=== PATIENT | female | born 1965 | race Caucasian/White ===

== ENCOUNTER 2017-09-26 12:04 | Emergency (ER) | payer OTHER, SELFPAY ==
[~2017-09-26 12:04] MED LIST: ISOVUE-370 76%-LOCM 1 ML ONE
--- NOTE | 2017-09-26 12:51 | RAD ---
AP CHEST: Indication: Chest pain, vomiting. Comparison: None. FINDINGS: Lungs are clear. Cardiomediastinal silhouette is within normal limits. There is post-surgical change involving the lower cervical spine, incompletely evaluated within the field of view. No definite acut e osseous abnormality is evident. IMPRESSION: No focal consolidation. POS: [facility]
[2017-09-26 13:05] LABS: #Basophils 0.1 thou/uL (0.0-0.2); #Eosinphils 0.2 thou/uL (0.0-0.7); #Lymphocytes 2.1 thou/uL (1.20-3.40); #Monocytes 0.2 thou/uL (0.11-0.59); #Neutrophils 1.8 thou/uL (1.40-6.50); %Basophils 1.5 % (0.0-1.0); %Eosinophils 3.6 % (0.0-10.0); %Lymphocytes 49.2 % (21.0-51.0); %Monocytes 5.2 % (0.0-10.0); %Neutrophils 40.6 % (42.0-75.0); Hemoglobin 12.7 g/dL (12.0-16.0); Mean Corpuscular HGB CONC 34.2 g/dL (32.0-36.0); Mean Corpuscular Hemoglobin 32.1 pg (27.0-31.0); Mean Corpuscular Volume 93.8 fl (81.0-99.0); Mean Platelet Volume 6.9 fL (7.4-10.4); Platelet Count 215 thou/uL (130-400); RBC Distribution Width 11.5 % (11.5-14.5); Red Blood Cell (RBC) Count 3.94 mill/uL (4.20-5.40); White Blood Cell (WBC) Count 4.3 thou/uL (4.8-10.8)
[2017-09-26 13:14] LABS: INR-International Normal Ratio 1.1; PTT 30.5 SEC (22.9-36.1); Prothrombin Time 14.2 SEC (12.0-14.7)
[2017-09-26 13:35] LABS: CKMB 0.5 ng/mL (0-6.6); Troponin I Less than 0.010 ng/mL (< 0.028)
[2017-09-26 13:40] LABS: ALT (SGPT) 14 U/L (8-55); AST (SGOT) 17 U/L (5-34); Albumin 4.2 g/dL (3.5-5.0); Alkaline Phosphatase 60 U/L (40-150); Anion Gap 9 mmol/L (10-20); BUN (Urea Nitrogen) 14 mg/dL (7.0-18.7); Bilirubin, Total 0.4 mg/dL (0.2-1.2); CK (CPK) 85 U/L (29-168); Calc. Creatinine Clearance 0 mL/min (70-130); Calcium 9.7 mg/dL (7.8-10.44); Carbon Dioxide 29 mmol/L (22-29); Chloride 106 mmol/L (98-107); Estimated GFR-MDRD 43; Globulin 3.4 g/dL (2.4-3.5); Glucose 94 mg/dL (70-105); Lipase 22 U/L (8-78); Potassium 3.7 mmol/L (3.5-5.1); Protein, Total 7.6 g/dL (6.0-8.3); Sodium 140 mmol/L (136-145)
[2017-09-26] MEDS ORDERED: Morphine 4 MG/ML VIAL ONE (14:46)
[2017-09-26] MEDS ORDERED: Ondansetron HCl/PF 4 MG/2 ML Vial ONE ×2 (14:47→16:19)
--- NOTE | 2017-09-26 16:23 | CT ---
CT ABDOMEN WITH CONTRAST CT PELVIS WITH CONTRAST: DATE: 09/26/2017 TIME: 3:58 p.m. HISTORY: A 52-year-old female with nausea, emesis, epigastric pain, and bilateral groin pain. COMPARISON: None. TECHNIQUE: IV injection of iodinated contrast media: Isovue. Oral contrast media: Not administered. FINDINGS: Lung bases: No consolidation or pleural effusion. Pneumoperitoneum: None. Ascites: None. Kidneys: Normal. Abdominal aorta: Normal. Adrenals: Normal. Pancreas: Normal. Spleen: Normal. Liver: Tiny, 0.8 cm focal, round, hypodense lesion in the right lobe of the liver, near the junction of hepatic segment 7 and 8, too small to characterize. No other abnormality. Common duct: Diffusely mildly dilated on a reservoir basis due to cholecystectomy. Cholecystectomy clips are present at the gallbladder fossa. Large intestine: Full of a moderate to large amount of stool. No signs of acute colonic diverticuli tis. Small intestine: Nondilated. Appendix: Absent. Suture line along the distal tip of the cecum. Urinary bladder. Decompressed. Abscess: None. Sacral stimulator lead enters right sacral neural foramen, with distal tip embedded in the right piri formis muscle. Osseous structures: No destructive osseous lesion identified. No high grade central spinal canal st enosis of the lumbar spine. IMPRESSION: 1. No acute findings. 2. Constipation. 3. Status post appendectomy. 4. Status post cholecystectomy. 5. Right sacral stimulator. 6. Tiny hypodense lesion in the right lobe of the liver, too small to characterize. AUTUMN Smith POS: [facility]
[2017-09-26 16:41] LABS: Bilirubin Negative (Negative); Blood, Urine Moderate (Negative); Clarity CLOUDY (Clear); Glucose, Urine (Dipstick) Negative (Negative); Leukocyte Moderate (Negative); Nitrite Negative (Negative); Protein, Urine (Dipstick) Negative (Neg-Trace); Specific Gravity, Urine 1.025 (1.002-1.036); Urobilinogen 0.2 mg/dL (0.2-1.0)
[2017-09-26 16:43] LABS: Bacteria/HPF Rare-Few HPF (None Seen); Hyaline Casts/LPF 4-6 HYALINE CAST LPF (0-3 Hyaline); Pathc Cast-AUWi Flag 0.94 (0-2.49); RBC/HPF 21-50 HPF (0-3)
[2017-09-26 19:23] LABS: Troponin I Less than 0.010 ng/mL (< 0.028)
--- NOTE | 2017-11-04 20:17 | EKG ---
Test Reason : Blood Pressure : / mmHG Vent. Rate : 069 BPM Atrial Rate : 069 BPM P-R Int : 126 ms QRS Dur : 070 ms QT Int : 414 ms P-R-T Axes : 032 016 -09 degrees QTc Int : 443 ms Normal sinus rhythm Normal ECG Confirmed by TO ONOFRE Lebron ([id number]), content editor BINDU BRANCH ([id number]) on 11/04/2017 8:17:14 PM Referred By: Confirmed By:ONOFRE FARFAN M.D.
== END 2017-09-26 19:40 | disposition home or self-care (01) ==
LOC: ERS 12:04
DX: N39.0 Urinary tract infection, site not specified (principal); J45.909 Unspecified asthma, uncomplicated; F32.9 Major depressive disorder, single episode, unspecified; Z79.899 Other long term (current) drug therapy; Z79.891 Long term (current) use of opiate analgesic
CPT/HCPCS: 36415; 71045; 74177; 80053; 81003; 81015; 82553; 83690; 83880; 84484; 85025; 85610; 85730; 87086; 87804; 93005; 96361; 96374; 96375; 96376; J0696; J2270; J2405

== ENCOUNTER 2017-09-28 01:37 | Emergency (ER) | payer OTHER, SELFPAY ==
[2017-09-28 02:19] LABS: #Eosinphils 0.1 thou/uL (0.0-0.7); #Lymphocytes 2.1 thou/uL (1.20-3.40); #Monocytes 0.3 thou/uL (0.11-0.59); #Neutrophils 2.2 thou/uL (1.40-6.50); %Basophils 0.9 % (0.0-1.0); %Eosinophils 2.9 % (0.0-10.0); %Monocytes 5.8 % (0.0-10.0); %Neutrophils 45.4 % (42.0-75.0); Hemoglobin 13.3 g/dL (12.0-16.0); Platelet Count 218 thou/uL (130-400); RBC Distribution Width 11.5 % (11.5-14.5); Red Blood Cell (RBC) Count 4.15 mill/uL (4.20-5.40); White Blood Cell (WBC) Count 4.7 thou/uL (4.8-10.8)
[2017-09-28 02:20] LABS: Bilirubin Negative (Negative); Blood, Urine Large (Negative); Clarity CLOUDY (Clear); Glucose, Urine (Dipstick) Negative (Negative); Leukocyte Small (Negative); Nitrite Negative (Negative); Protein, Urine (Dipstick) Trace mg/dL (Neg-Trace); Urobilinogen 0.2 mg/dL (0.2-1.0)
[2017-09-28 02:21] LABS: Bacteria/HPF None Seen HPF (None Seen); Pathc Cast-AUWi Flag 0.94 (0-2.49)
[2017-09-28] MEDS ORDERED: Ondansetron HCl/PF 4 MG/2 ML Vial ONE (02:21)
[2017-09-28] MEDS ORDERED: Ketorolac Tromethamine 30 MG/ML VIAL ONE ×2 (02:25)
[2017-09-28 03:01] LABS: Yeast-AUWi Flag 38.8 (0-25.0)
[2017-09-28 03:03] LABS: ALT (SGPT) 18 U/L (8-55); AST (SGOT) 24 U/L (5-34); Albumin 4.7 g/dL (3.5-5.0); Alkaline Phosphatase 66 U/L (40-150); Anion Gap 14 mmol/L (10-20); BUN (Urea Nitrogen) 17 mg/dL (7.0-18.7); Bilirubin, Total 0.3 mg/dL (0.2-1.2); Calc. Creatinine Clearance 0 mL/min (70-130); Calcium 10.2 mg/dL (7.8-10.44); Carbon Dioxide 22 mmol/L (22-29); Chloride 109 mmol/L (98-107); Estimated GFR-MDRD 43; Globulin 4.1 g/dL (2.4-3.5); Glucose 107 mg/dL (70-105); Lipase 26 U/L (8-78); Potassium 3.9 mmol/L (3.5-5.1); Protein, Total 8.8 g/dL (6.0-8.3); Sodium 141 mmol/L (136-145)
[2017-09-28 03:09] LABS: Hyaline Casts/LPF NONE SEEN LPF (0-3 Hyaline); RBC/HPF 21-50 HPF (0-3); Yeast-All Forms None Seen HPF (None Seen)
[2017-09-28] MEDS ORDERED: traMADol HCl 50 MG TAB ONE (03:53)
== END 2017-09-28 04:01 | disposition home or self-care (01) ==
LOC: ERS 01:37
DX: N39.0 Urinary tract infection, site not specified (principal); J45.909 Unspecified asthma, uncomplicated; F32.9 Major depressive disorder, single episode, unspecified; Z79.899 Other long term (current) drug therapy
CPT/HCPCS: 80053; 81003; 81015; 83690; 85025; 96361; 96374; 96375; J1885; J2405

== ENCOUNTER 2017-10-31 00:03 | Emergency (ER) | payer OTHER ==
[2017-10-31 00:30] LABS: #Basophils 0.1 thou/uL (0.0-0.2); #Eosinphils 0.1 thou/uL (0.0-0.7); #Lymphocytes 1.9 thou/uL (1.20-3.40); #Monocytes 0.2 thou/uL (0.11-0.59); #Neutrophils 1.9 thou/uL (1.40-6.50); %Basophils 1.9 % (0.0-1.0); %Eosinophils 3.1 % (0.0-10.0); %Lymphocytes 44.4 % (21.0-51.0); %Monocytes 4.4 % (0.0-10.0); %Neutrophils 46.1 % (42.0-75.0); Hemoglobin 12.5 g/dL (12.0-16.0); Mean Corpuscular HGB CONC 36.3 g/dL (32.0-36.0); Mean Corpuscular Hemoglobin 33.7 pg (27.0-31.0); Mean Corpuscular Volume 92.8 fl (81.0-99.0); Mean Platelet Volume 7.2 fL (7.4-10.4); Platelet Count 210 thou/uL (130-400); RBC Distribution Width 12.5 % (11.5-14.5); Red Blood Cell (RBC) Count 3.71 mill/uL (4.20-5.40); White Blood Cell (WBC) Count 4.2 thou/uL (4.8-10.8)
[2017-10-31 00:42] LABS: Pregnancy Test - Urine (BHCG) Negative (Negative); Pregu Control Background? CLEAR/WHITE (CLR/WHITE); Pregu Control Bar Appear? YES (CONTROL BAR); Specific Gravity 1.017 (1.002-1.036)
[2017-10-31 00:44] LABS: ALT (SGPT) 14 U/L (8-55); AST (SGOT) 20 U/L (5-34); Acetaminophen Less than 6.0 mcg/mL (10.0-30.0); Albumin 4.4 g/dL (3.5-5.0); Alcohol 119 mg/dL (Less than 10); Alkaline Phosphatase 69 U/L (40-150); Anion Gap 19 mmol/L (10-20); BUN (Urea Nitrogen) 14 mg/dL (7.0-18.7); Bilirubin, Total 0.3 mg/dL (0.2-1.2); CK (CPK) 110 U/L (29-168); Calc. Creatinine Clearance 0 mL/min (70-130); Calcium 9.7 mg/dL (7.8-10.44); Carbon Dioxide 19 mmol/L (22-29); Chloride 110 mmol/L (98-107); Estimated GFR-MDRD 59; Globulin 3.5 g/dL (2.4-3.5); Glucose 99 mg/dL (70-105); Potassium 3.7 mmol/L (3.5-5.1); Protein, Total 7.9 g/dL (6.0-8.3); Salicylate Less than 8.0 mg/dL (15.0-30.0); Sodium 144 mmol/L (136-145)
[2017-10-31 00:53] LABS: Amphetamine Not Detected (NotDetected); Barbiturates Screen Not Detected (NotDetected); Benzodiazepine Screen Detected (NotDetected); Cocaine Metabolite Screen Not Detected (NotDetected); Medtox Control Line Valid? VALID (VALID); Medtox Reader # READER 4; Methadone Not Detected (NotDetected); Methamphetamine Not Detected (NotDetected); Opiate Screen Detected (NotDetected); Oxycodone Screen Not Detected (NotDetected); Phencyclidine (PCP) Not Detected (NotDetected); THC/Cannabinoid Screen Not Detected (NotDetected); Tricyclic Screen Detected (NotDetected)
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
== END 2017-10-31 12:14 ==
LOC: ERS 00:03
DX: T42.4X2A Poisoning by benzodiazepines, intentional self-harm, initial encounter (principal); J45.909 Unspecified asthma, uncomplicated; F32.9 Major depressive disorder, single episode, unspecified; Z79.899 Other long term (current) drug therapy
CPT/HCPCS: 36415; 51701; 70450; 70486; 80053; 80306; 80307; 81025; 82550; 84443; 85025; 93005; 96360; A4353

== ENCOUNTER 2018-04-13 14:06 | Emergency (ER) | payer OTHER, SELFPAY ==
[2018-04-13] MEDS ORDERED: ISOVUE-370 76%-LOCM 1 ML ONE (14:43)
[2018-04-13 15:13] LABS: #Basophils 0.1 thou/uL (0.0-0.2); #Eosinphils 0.1 thou/uL (0.0-0.7); #Lymphocytes 2.2 thou/uL (1.20-3.40); #Monocytes 0.3 thou/uL (0.11-0.59); #Neutrophils 2.8 thou/uL (1.40-6.50); %Basophils 1.3 % (0.0-1.0); %Eosinophils 2.5 % (0.0-10.0); %Lymphocytes 39.9 % (21.0-51.0); %Monocytes 5.7 % (0.0-10.0); %Neutrophils 50.7 % (42.0-75.0); Hemoglobin 12.8 g/dL (12.0-16.0); Mean Corpuscular HGB CONC 36.2 g/dL (32.0-36.0); Mean Corpuscular Hemoglobin 33.6 pg (27.0-31.0); Mean Corpuscular Volume 92.8 fL (78.0-98.0); Mean Platelet Volume 7.7 fL (7.4-10.4); Platelet Count 194 thou/uL (130-400); White Blood Cell (WBC) Count 5.5 thou/uL (4.8-10.8)
--- NOTE | 2018-04-13 15:36 | CT ---
CT OF THE ABDOMEN AND PELVIS WITH CONTRAST: COMPARISON: 09/26/17. INDICATION: Left lower quadrant abdominal pain. FINDINGS: Patchy opacities at the visualized lung bases may be related to volume loss. Small hepatic hypodensi ties are too small to definitively characterize. There is evidence of prior cholecystectomy. Adrena l glands and kidneys are unremarkable. No acute abnormality of the spleen or pancreas. The bowel is incompletely evaluated without enteric contrast. There is no pneumoperitoneum or ascites. Neurosti mulator is seen from a right posterior pelvic approach. There is mild vascular calcification. There is curvilinear density at the cecum which may be related to a history of prior bowel surgery. Corre late with patient's surgical history. IMPRESSION: No acute abnormality identified, within limitations. The bowel is not reliably assessed without ente dinorah contrast administration. POS: [facility]
[2018-04-13 15:39] LABS: ALT (SGPT) 28 U/L (8-55); AST (SGOT) 46 U/L (5-34); Albumin 4.6 g/dL (3.5-5.0); Alkaline Phosphatase 65 U/L (40-150); Anion Gap 17 mmol/L (10-20); BUN (Urea Nitrogen) 20 mg/dL (9.8-20.1); Bilirubin, Total 0.5 mg/dL (0.2-1.2); CK (CPK) 140 U/L (29-168); Calc. Creatinine Clearance 0 mL/min (70-130); Calcium 9.5 mg/dL (7.8-10.44); Carbon Dioxide 22 mmol/L (22-29); Chloride 108 mmol/L (98-107); Estimated GFR-MDRD 44; Globulin 3.9 g/dL (2.4-3.5); Glucose 81 mg/dL (70-105); Lipase 21 U/L (8-78); Potassium 4.8 mmol/L (3.5-5.1); Protein, Total 8.5 g/dL (6.0-8.3); Sodium 142 mmol/L (136-145)
[2018-04-13 15:41] LABS: CKMB 0.8 ng/mL (0-6.6); Troponin I Less than 0.010 ng/mL (< 0.028)
[2018-04-13 16:04] LABS: Bilirubin Negative (Negative); Blood, Urine Trace (Negative); Clarity CLEAR (Clear); Glucose, Urine (Dipstick) Negative (Negative); Leukocyte Small (Negative); Nitrite Negative (Negative); Protein, Urine (Dipstick) Negative (Neg-Trace); Urobilinogen 0.2 mg/dL (0.2-1.0)
[2018-04-13 16:06] LABS: Bacteria/HPF None Seen HPF (None Seen); Hyaline Casts/LPF 4-6 HYALINE CAST LPF (0-3 Hyaline); Pathc Cast-AUWi Flag 0.87 (0-2.49)
[2018-04-13 16:07] LABS: Specific Gravity, Urine Greater than 1.060 (1.002-1.036)
[2018-04-13] MEDS ORDERED: Metoclopramide HCl 10 MG/2 ML VIAL ONE (16:34)
[2018-04-13] MEDS ORDERED: Acetaminophen 500 MG TAB ONE (16:34)
== END 2018-04-13 17:14 | disposition home or self-care (01) ==
LOC: ERS 14:06
DX: R11.2 Nausea with vomiting, unspecified (principal); R10.13 Epigastric pain; J45.909 Unspecified asthma, uncomplicated; F31.9 Bipolar disorder, unspecified; Z87.891 Personal history of nicotine dependence; Z79.899 Other long term (current) drug therapy
CPT/HCPCS: 74177; 80053; 81003; 81015; 82550; 82553; 83690; 84484; 85025; 93005; 94760; 96361; 96374; J2765

== ENCOUNTER 2018-05-28 08:47 | Emergency (ER) | payer OTHER, SELFPAY ==
[2018-05-28 09:34] LABS: #Basophils 0.1 thou/uL (0.0-0.2); #Eosinphils 0.1 thou/uL (0.0-0.7); #Lymphocytes 2.3 thou/uL (1.20-3.40); #Monocytes 0.2 thou/uL (0.11-0.59); #Neutrophils 2.2 thou/uL (1.40-6.50); %Basophils 1.9 % (0.0-1.0); %Eosinophils 2.2 % (0.0-10.0); %Lymphocytes 47.1 % (21.0-51.0); %Monocytes 4.9 % (0.0-10.0); Hemoglobin 12.6 g/dL (12.0-16.0); Mean Corpuscular HGB CONC 35.1 g/dL (32.0-36.0); Mean Corpuscular Volume 93.9 fL (78.0-98.0); Mean Platelet Volume 7.6 fL (7.4-10.4); Platelet Count 204 thou/uL (130-400); RBC Distribution Width 12.1 % (11.5-14.5); Red Blood Cell (RBC) Count 3.83 mill/uL (4.20-5.40); White Blood Cell (WBC) Count 4.9 thou/uL (4.8-10.8)
[2018-05-28 09:46] LABS: ALT (SGPT) 18 U/L (8-55); AST (SGOT) 17 U/L (5-34); Albumin 4.4 g/dL (3.5-5.0); Alkaline Phosphatase 64 U/L (40-150); Anion Gap 15 mmol/L (10-20); BUN (Urea Nitrogen) 14 mg/dL (9.8-20.1); Bilirubin, Total 0.6 mg/dL (0.2-1.2); Calc. Creatinine Clearance 0 mL/min (70-130); Calcium 9.4 mg/dL (7.8-10.44); Carbon Dioxide 21 mmol/L (22-29); Chloride 110 mmol/L (98-107); Estimated GFR-MDRD 43; Globulin 3.8 g/dL (2.4-3.5); Glucose 93 mg/dL (70-105); Potassium 3.5 mmol/L (3.5-5.1); Protein, Total 8.2 g/dL (6.0-8.3); Sodium 142 mmol/L (136-145)
--- NOTE | 2018-05-28 10:57 | ULT ---
LIMITED LEFT BREAST ULTRASOUND: INDICATION: Concern for left breast abscess. FINDINGS: Within the area of concern in the left breast 7 o'clock position, no definite drainable focal fluid c ollection is evident. IMPRESSION: No drainable focal fluid collection demonstrated within the area of concern. Would recommend a follo wup nonemergent diagnostic mammographic breast evaluation. POS: [facility]
== END 2018-05-28 11:50 | disposition home or self-care (01) ==
LOC: ERS 08:47
DX: N64.4 Mastodynia (principal); F31.9 Bipolar disorder, unspecified; J45.909 Unspecified asthma, uncomplicated; Z87.891 Personal history of nicotine dependence; Z79.899 Other long term (current) drug therapy
CPT/HCPCS: 36415; 80053; 84146; 85025

== ENCOUNTER 2018-05-30 14:26 | Outpatient (CLI) | payer OTHER | END 2018-05-30 14:27 | disposition home or self-care (01) | LOC: BICMAMMO 14:26 | PROVIDERS: ATTEND Family Medicine | DX: N63.0 Unspecified lump in unspecified breast (principal) | CPT/HCPCS: 77066; G0279 ==

== ENCOUNTER 2018-06-06 10:39 | Emergency (ER) | payer OTHER | END 2018-06-06 11:42 | disposition home or self-care (01) | LOC: ERS 10:39 | DX: N64.4 Mastodynia (principal); J45.909 Unspecified asthma, uncomplicated; F31.9 Bipolar disorder, unspecified; Z87.891 Personal history of nicotine dependence; Z79.891 Long term (current) use of opiate analgesic; Z79.899 Other long term (current) drug therapy | CPT/HCPCS: 99283 ==

== ENCOUNTER 2018-06-14 08:11 | Emergency (ER) | payer OTHER | END 2018-06-14 09:16 | disposition home or self-care (01) | LOC: ERS 08:11 | DX: N63.0 Unspecified lump in unspecified breast (principal); J45.909 Unspecified asthma, uncomplicated; F31.9 Bipolar disorder, unspecified; Z87.891 Personal history of nicotine dependence; Z79.899 Other long term (current) drug therapy ==

== ENCOUNTER 2018-07-23 08:20 | Emergency (ER) | payer OTHER ==
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
== END 2018-07-23 11:21 | disposition home or self-care (01) ==
LOC: ERS 08:20
DX: S06.0X0A Concussion without loss of consciousness, initial encounter (principal); S16.1XXA Strain of muscle, fascia and tendon at neck level, initial encounter; J45.909 Unspecified asthma, uncomplicated; F31.9 Bipolar disorder, unspecified; Z87.891 Personal history of nicotine dependence; F17.290 Nicotine dependence, other tobacco product, uncomplicated; Z79.899 Other long term (current) drug therapy; V43.52XA Car driver injured in collision with other type car in traffic accident, initial encounter
CPT/HCPCS: 70450; 72125

== ENCOUNTER 2018-09-14 16:56 | Emergency (ER) | payer OTHER ==
[2018-09-14 17:27] LABS: #Eosinphils 0.1 thou/uL (0.0-0.7); #Lymphocytes 1.7 thou/uL (1.20-3.40); #Monocytes 0.2 thou/uL (0.11-0.59); #Neutrophils 2.6 thou/uL (1.40-6.50); %Basophils 0.9 % (0.0-1.0); %Lymphocytes 35.7 % (21.0-51.0); %Monocytes 4.8 % (0.0-10.0); %Neutrophils 56.7 % (42.0-75.0); Hemoglobin 13.4 g/dL (12.0-16.0); Mean Corpuscular HGB CONC 34.4 g/dL (32.0-36.0); Mean Corpuscular Hemoglobin 31.8 pg (27.0-31.0); Mean Corpuscular Volume 92.3 fL (78.0-98.0); Mean Platelet Volume 7.8 fL (7.4-10.4); Platelet Count 242 thou/uL (130-400); RBC Distribution Width 12.7 % (11.5-14.5); Red Blood Cell (RBC) Count 4.22 mill/uL (4.20-5.40); White Blood Cell (WBC) Count 4.6 thou/uL (4.8-10.8)
[2018-09-14 17:46] LABS: ALT (SGPT) 29 U/L (8-55); AST (SGOT) 27 U/L (5-34); Albumin 4.7 g/dL (3.5-5.0); Alkaline Phosphatase 73 U/L (40-150); Anion Gap 13 mmol/L (10-20); BUN (Urea Nitrogen) 9 mg/dL (9.8-20.1); Bilirubin, Total 0.4 mg/dL (0.2-1.2); Calc. Creatinine Clearance 0 mL/min (70-130); Calcium 10.2 mg/dL (7.8-10.44); Carbon Dioxide 25 mmol/L (22-29); Chloride 108 mmol/L (98-107); Estimated GFR-MDRD 53; Globulin 3.9 g/dL (2.4-3.5); Glucose 112 mg/dL (70-105); Protein, Total 8.6 g/dL (6.0-8.3); Sodium 142 mmol/L (136-145)
[2018-09-14] MEDS ORDERED: diphenhydrAMINE 50 MG/ML VIAL ONE (18:53)
[2018-09-14] MEDS ORDERED: Metoclopramide HCl 10 MG/2 ML VIAL ONE (18:53)
[2018-09-14] MEDS ORDERED: Ketorolac Tromethamine 30 MG/ML VIAL ONE (18:53)
--- NOTE | 2018-09-14 19:41 | CT ---
CT OF BRAIN PERFORMED WITHOUT CONTRAST ENHANCEMENT: 09/14/18 HISTORY: Recurrent headaches. COMPARISON: 07/23/18 study. The ventricular and cisternal system is within normal limits. There is no signs of intracerebral hemo rrhage or extra-axial fluid collections. Mastoid air cells and visualized sinuses are clear. IMPRESSION: No acute intracranial abnormality. POS: [facility]
--- NOTE | 2018-09-14 19:42 | RAD ---
PORTABLE CHEST: 09/14/18 HISTORY: Recurrent headaches. Chest pain. COMPARISON: 09/26/17 study. Heart size is borderline for AP technique. Mediastinal structures are unremarkable. Lungs are clear o f infiltrates. Postoperative changes of the cervical spine are seen. IMPRESSION: No active intrathoracic disease. POS: [facility]
--- NOTE | 2018-09-14 19:48 | CT ---
CT OF CERVICAL SPINE PERFORMED WITHOUT CONTRAST ENHANCEMENT: 09/14/18 HISTORY: Neck pain. Headache. COMPARISON: 07/23/18 exam. The vertebral bodies are normal in height. The patient has undergone an anterior cervical fusion with placement of a plate and screws extending across C4, C5, and C6. There are also metallic plate and s crews related to bilateral facet joints at the C4-5 and C5-6 levels. All of these changes appear tootie lar to the previous exam. I do not appreciate any significant canal or foraminal stenosis at any of t he vertebral body levels. IMPRESSION: Stable postoperative change. POS: [facility]
== END 2018-09-14 21:34 | disposition home or self-care (01) ==
LOC: ERS 16:56
DX: S10.93XA Contusion of unspecified part of neck, initial encounter (principal); R51 Headache; R55 Syncope and collapse; J45.909 Unspecified asthma, uncomplicated; F31.9 Bipolar disorder, unspecified; Z87.891 Personal history of nicotine dependence; Z79.899 Other long term (current) drug therapy; W18.30XA Fall on same level, unspecified, initial encounter
CPT/HCPCS: 36415; 70450; 71045; 72125; 80053; 84484; 85025; 93005; 94760; 96365; 96375; J1200; J1885; J2765